=== PATIENT | female | born 1960 | race Caucasian/White ===

== ENCOUNTER 2017-03-08 13:57 | Emergency (ER) | payer MEDICARE ==
[~2017-03-08] VITALS: Ht 167.6 cm; Wt 85.0 kg
[2017-03-08 13:58] VITALS: BP 178/98; PULSE 65; RESP 16; TEMP 98; O2SAT 100
--- NOTE | 2017-03-08 14:10 | PD ---
Physical Exam Time Seen by Provider: 14:09 Narrative 56yo F c/o fall and hitting head about an hour ago. Slipped on wet surface. Denies LOC. Denies anticoagulants. Patient seen in triage. VS reviewed. Awaiting bed placement. Data Data Last Documented VS Vital Signs Date Time Temp Pulse Resp B/P Pulse Ox O2 Delivery O2 Flow Rate FiO2 03/08/17 13:58 98.0 65 16 178/98 100 Room Air MDM Supervised Visit with EH: Concha Yan Mar 08, 2017 14:10
[2017-03-08 14:14] VITALS: BP 177/98; PULSE 70; RESP 12; TEMP 98.2; O2SAT 100
[2017-03-08] MEDS ORDERED: LEVO50TA4 PO (14:23)
[2017-03-08] MEDS ORDERED: Metoprolol PO (14:23)
[2017-03-08] MEDS ORDERED: GABA600T PO (14:24)
--- NOTE | 2017-03-08 14:25 | PD ---
HPI . Facial laceration Chief Complaint: Fall Time Seen by Provider: 14:12 Travel History International Travel<30 days: No Contact w/Intl Traveler<30days: No Traveled to known affect area: No History of Present Illness HPI Patient presents with a facial laceration. She slipped on wet pavement and a flat on her face. She denies loss of consciousness. She denies neck pain. Tetanus is up-to-date. She describes pain associated with the injury. It is a constant, achy pain which she rates as 78/10. [facility] Social History Tobacco Use: No Allergies-Medications (Allergen,Severity, Reaction): Coded Allergies: Morphine (Verified Allergy, Unknown, 03/08/17) Reported Meds & Prescriptions Reported Meds & Active Scripts Active Reported Gabapentin 600 Mg Tab 600 Mg PO BID Levothyroxine (Levothyroxine Sodium) 50 Mcg Tab 50 Mcg PO DAILY [Metoprolol] 12.5 Mg PO BID Review of Systems Except as stated in HPI: all other systems reviewed are Neg Eyes: No: Diploplia, Blurred Vision HENT: No: Neck Pain Skin: Positive Change in Pigmentation, Positive Other Physical Exam Narrative GENERAL: Awake and alert and in no acute distress. SKIN: Warm and dry. She has a less than 1 cm laceration lateral to the left eye. Some an associated left periorbital contusion. It is tender. HEAD: Atraumatic. Normocephalic. EYES: Pupils equal and round. Extraocular movements are intact. NECK: Trachea midline. Neck is nontender. CARDIOVASCULAR: Regular rate and rhythm. RESPIRATORY: No accessory muscle use. MUSCULOSKELETAL: No obvious deformities. No edema. NEUROLOGICAL: Awake and alert. No obvious cranial nerve deficits. Motor grossly within normal limits. Normal speech. PSYCHIATRIC: Appropriate mood and affect; insight and judgment normal. Data Data Last Documented VS Vital Signs Date Time Temp Pulse Resp B/P Pulse Ox O2 Delivery O2 Flow Rate FiO2 03/08/17 14:14 98.2 70 12 177/[address] Facial Bones W/O Iv Cont (03/08/17 14:18) Lidocaine 1% Inj (50 Ml) (Xylocaine 1% I (03/08/17 14:30) Acetamin-Hydrocod 325-5 Mg ([place] 5-325 (03/08/17 14:30) MDM Medical Decision Making Medical Screen Exam Complete: Yes Emergency Medical Condition: Yes Differential Diagnosis Differential diagnosis includes but is not limited to skin laceration, muscular laceration, tendon laceration, neurovascular laceration. Narrative Course Patient presents for laceration lateral to her left eye. She has no associated periorbital contusion. CT of the facial bones will be done to rule out a fracture. The laceration will be repaired by one of the PAs. CT of facial bones>>Soft tissue swelling over left frontal bone without fracture. Diagnosis Primary Impression: Periorbital contusion of left eye Qualified Code: S05.12XA - Periorbital contusion of left eye, initial encounter Additional Impression: Facial laceration Qualified Code: S01.81XA - Facial laceration, initial encounter Patient Instructions: Facial Contusion (ED), Facial Laceration (ED), General Instructions Additional Instructions: Clean the wound twice daily with soap and water or peroxide. Apply a thin layer of Neosporin ointment after you wash it. See your doctor in 5 days for suture removal. Seek care sooner for redness, drainage, warmth, unusual pain. Disposition: 01 DISCHARGE HOME Condition: Stable Alexandra Toro MD Mar 08, 2017 14:25
[2017-03-08] MEDS ORDERED: LIDOCAINE HCL 1% 50 ML VIAL INFIL ONE (14:30)
[2017-03-08] MEDS ORDERED: ACETAMINOPHEN/HYDROcodone 325 MG/5 MG TAB PO ONE (14:30)
--- NOTE | 2017-03-08 14:35 | PD ---
Physical Exam Time Seen by Provider: 14:30 Data Data Last Documented VS Vital Signs Date Time Temp Pulse Resp B/P Pulse Ox O2 Delivery O2 Flow Rate FiO2 03/08/17 14:14 98.2 70 12 177/[address] Facial Bones W/O Iv Cont (03/08/17 14:18) Lidocaine 1% Inj (50 Ml) (Xylocaine 1% I (03/08/17 14:30) Acetamin-Hydrocod 325-5 Mg ([place] 5-325 (03/08/17 14:30) MDM Medical Record Reviewed: Yes Supervised Visit with EH: No Narrative Course I was asked to repair this patient's facial laceration. The patient verbally consents. Procedures Procedure Narrative LACERATION LOCATION: Left forehead LENGTH: 1 cm NUMBER OF STITCHES/SHADY: 2 REPAIR: The area of the laceration was prepped with Betadine and sterilely draped. The laceration was infiltrated with 1% lidocaine. The wound was copiously irrigated and explored without evidence of foreign body, tendon injury or neurovascular injury. The wound was closed using 5-0 prolene simple interrupted. This was a single layer repair. A sterile dressing was applied. The patient was advised to keep the dressing clean and dry. Patient tolerated the procedure well. Diagnosis Primary Impression: Periorbital contusion of left eye Qualified Code: S05.12XA - Periorbital contusion of left eye, initial encounter Additional Impression: Facial laceration Qualified Code: S01.81XA - Facial laceration, initial encounter Patient Instructions: General Instructions, Facial Contusion (ED), Facial Laceration (ED) Additional Instruction: Clean the wound twice daily with soap and water or peroxide. Apply a thin layer of Neosporin ointment after you wash it. See your doctor in 5 days for suture removal. Seek care sooner for redness, drainage, warmth, unusual pain. Disposition: 01 DISCHARGE HOME Condition: Stable Sarbjit Holguin Mar 08, 2017 14:35
--- NOTE | 2017-03-08 15:46 | RADRPT ---
EXAM DATE/TIME: 03/08/2017 15:21 [place] COMPARISON: No previous studies available for comparison. INDICATIONS : Patient fell today. Swelling left orbit RADIATION DOSE: 55.68 CTDIvol (mGy) MEDICAL HISTORY : Cardiovascular disease. SURGICAL HISTORY : Pacemaker. ENCOUNTER: Initial ACUITY: 1 day PAIN SCORE: 5/10 LOCATION: Left facial TECHNIQUE: Volumetric scanning of the facial bones was performed. Using automated exposure control and adjustme nt of the mA and/or kV according to patient size, radiation dose was kept as low as reasonably achiev able to obtain optimal diagnostic quality images. FINDINGS: There is soft tissue over the left frontal bone. There is no evidence for mastoid disease. There is no evidence for fracture. Maxillary and ethmoid sinuses are clear. CONCLUSION: Soft tissue swelling over left frontal bone without fracture. Bulmaro Maurice MD FACR on March 08, 2017 at 15:38 Board Certified Radiologist. This report was verified electronically.
== END 2017-03-08 23:00 | disposition home or self-care (01) ==
LOC: NEPD 13:57
DX: S01.81XA Laceration without foreign body of other part of head, initial encounter (principal); S00.12XA Contusion of left eyelid and periocular area, initial encounter; W01.0XXA Fall on same level from slipping, tripping and stumbling without subsequent striking against object, initial encounter
CPT/HCPCS: 12001; 70486